=== PATIENT | female | born 1980 | race Caucasian/White ===

== ENCOUNTER 2021-01-05 12:23 | Emergency (ER) | payer OTHER ==
[~2021-01-05] VITALS: Ht 170.2 cm; Wt 124.7 kg
--- NOTE | ~2021-01-05 | EMS ---
[place] [address] EMS Patient Care Report Name: [facility]ITHIN COMER [id number] Admission: 01/05/21 Attend Phys: Discharge: 01/05/21 Date of : 84 Report #: [id number] THIS REPORT FOR: //name// Report Transmitted: 01/05/2021 16:22 EMS Care Summary [facility]ident [id number] @ 01/05/2021 11:25 Incident [address] [place] [address] Patient NITHIN COMER Female, 40 Years 1980 Patient Address [address] [place] [address] Chief Complaint She's been short of air for the last day Disposition Transported Lights/[place] [facility] Reason Breathing Problem Transported To [facility] Narrative Med 1 response requested to [address] [place] [address] for a female with shortness of air and feeling dizzy. Med 1 copied the call and began our emergent response to the scene. We arrived on scene after [facility] without incident. We were met at the ambulance by the FD with a brief report on the situation. We were advised the patient was in severe distress and vitals were not able to be obtained due to distress level. Inside the residence we located a female sitting up right in a recliner type chair. Patient alert with A GCS of 15 however slow to respond. Patient pale and diaphoretic. Family advised that she has not been feeling well for three weeks. She has had heavy vaginal bleeding for three weeks. Unknown if she was [place] [id number] EMS Patient Care Report Name: NITHIN COMER Room: [facility]#: [id number] Admission: 01/05/21 Attend Phys: Discharge: 01/05/21 Date of : 84 Report #: [id number] at any point. Family denied that she takes any medication and has no medical history. She woke up from sleep around 11am and complained of abdominal pain that ran into her chest. She had increased shortness of air after waking up. Family called EMS when the patient began to have fainting episodes. Patients vitals were obtained at her side. We were not able to get an oxygen saturation due to cool finger tips. Lungs were clear upon assessment. She was placed on oxygen via NC which she advised helped. As patient was being moved to the stair chair she became unresponsive. Patient went apneic and had no palpable pulse present. She was moved to the floor and CPR was initiated. She was placed on the ekg monitor in patches mode. She was ventilated with a BVM with high flow oxygen and capnography. IV access was obtained on the left side with fluid running wide open. After the first cycle of CPR was completed we paused for a rhythm check. Patient remained pulseless and was noted to be in PEA. CPR continued. IGEL was placed and confirmed then secured with tube tie. She was given a dose of Epi and Narcan with no changes. We continued rounds of CPR with pauses for rhythm and pulse checks. Patient remained in PEA. We gave doses of Epi IV with no changes. As the code was witnessed by EMS we made the decision to transport to the ER for further treatment and care. Patient rolled on to a backboard where she was secured. She was then taken to the cot where she was again secured. She was taken to the ambulance and placed inside. Treatment continued as we transported emergent to [facility]. Radio report was called in to the ER 20 min prior to arrival. Upon arrival to the ER patient was taken inside and to ER 2 where she was moved to the ER bed. Patients las rhythm with EMS upon arrival was Asystole. Report was given to the DR taking over care. Signatures were obtained by the ER as the patient was not able due to cardiac arrest. Care transferred and Med 1 cleared to return to service. 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 Acute Respiratory Distress (Dyspnea) [facility] [address] [facility] [place] [address] EMS Patient Care Report Name: NITHIN COMER Room: [facility]#: [id number] Admission: 01/05/21 Attend Phys: Discharge: 01/05/21 Date of : 84 Report #: [id number] Procedures @11:40ALS AssessmentResponse: UnchangedSucceeded@11:48Response: UnchangedSucceeded@11:50Lactated Ringers 1000cc (20 ga) Site: Antecubital-LeftResponse: UnchangedSucceeded@12:12Epinephrine 1:10 - 1 Milligrams (mg) - Intravenous (IV)Response: Unchanged@12:07Epinephrine 1:10 - 1 Milligrams (mg) - Intravenous (IV)Response: Unchanged@12:02Epinephrine 1:10 - 1 Milligrams (mg) - Intravenous (IV)Response: Unchanged@11:57Epinephrine 1:10 - 1 Milligrams (mg) - Intravenous (IV)Response: Unchanged@11:52Epinephrine 1:10 - 1 Milligrams (mg) - Intravenous (IV)Response: Unchanged@11:55Narcan - 1 Milligrams (mg) - Intravenous (IV)Response: Unchanged@12:18Epinephrine 1:10 - 1 Milligrams (mg) - Intravenous (IV)Response: Unchanged@11:49iGEL Response: UnchangedSucceeded@11:50Suction Response: UnchangedSucceeded@11:41Oxygen FlowRate: 4 Device: Nasal Cannula (NC) Response: UnchangedSucceeded@11:49Oxygen FlowRate: 15 Device: Bag Valve Mask (BVM) Response: ImprovedSucceeded Timeline 11:24,Call Received 11:25,Dispatched 11:27,En Route 11:37,On Scene 11:38,At Patient 11:40,ALS Assessment,Response: UnchangedSucceeded, 11:40,BP: 90/ M,PULSE: 62,RR: 12 R,SPO2: Ox,ETCO2: ,BG: -2,PAIN: ,GCS: 13, 11:41,Oxygen FlowRate: 4 Device: Nasal Cannula (NC) Response: UnchangedSucceeded, 11:48,Response: UnchangedSucceeded, 11:48,BP: / M,PULSE: 0,RR: 12 R,SPO2: Ox,ETCO2: 22 ,BG: ,PAIN: ,GCS: 11, 11:49,Oxygen FlowRate: 15 Device: Bag Valve Mask (BVM) Response: ImprovedSucceeded, 11:49,iGEL Response: UnchangedSucceeded, 11:50,Lactated Ringers 1000cc 20 ga Site: Antecubital-Left,Response: UnchangedSucceeded, 11:50,Suction Response: UnchangedSucceeded, 11:52,Epinephrine 1:10 - 1 Milligrams (mg) - Intravenous (IV),Response: Unchanged 11:55,Narcan - 1 Milligrams (mg) - Intravenous (IV),Response: Unchanged 11:57,Depart Scene 11:57,Epinephrine 1:10 - 1 Milligrams (mg) - Intravenous (IV),Response: Unchanged 12:00,BP: / M,PULSE: 0,RR: 12 R,SPO2: Ox,ETCO2: 28 ,BG: ,PAIN: ,GCS: 3, 12:02,Epinephrine 1:10 - 1 Milligrams (mg) - Intravenous (IV),Response: Unchanged 12:07,Epinephrine 1:10 - 1 Milligrams (mg) - Intravenous (IV),Response: Unchanged 12:10,BP: / M,PULSE: 0,RR: 12 R,SPO2: Ox,ETCO2: 10 ,BG: ,PAIN: ,GCS: , [address] [address] EMS Patient Care Report Name: NITHIN COMER Room: [facility]#: [id number] Admission: 01/05/21 Attend Phys: Discharge: 01/05/21 Date of : 84 Report #: [id number] 12:12,Epinephrine 1:10 - 1 Milligrams (mg) - Intravenous (IV),Response: Unchanged 12:15,BP: / M,PULSE: ,RR: 12 R,SPO2: Ox,ETCO2: 6 ,BG: ,PAIN: ,GCS: 3, 12:18,Epinephrine 1:10 - 1 Milligrams (mg) - Intravenous (IV),Response: Unchanged 12:20,At Destination 12:20,BP: / M,PULSE: ,RR: 10 R,SPO2: Ox,ETCO2: 12 ,BG: -2,PAIN: ,GCS: 3, 13:30,Call Closed Disclaimer v1.1 Copyright 2020 [employer] This EMS Care Summary contains data elements from the applicable legal record (which may be displayed differently). It is designed to provide pertinent information for the following purposes: continuity of care, clinical quality, and state data reporting. The complete legal record is available to ED staff and administrators of the receiving hospital in [employer]'s Patient Tracker. All data is provided "as is."
[~2021-01-05 12:23] MED LIST: TRAMADOL 50 MG50 MG PO
[2021-01-05 12:44] VITALS: BP 0/0
[2021-01-05] MEDS ORDERED: METFORMIN HCL500 M3 PO (13:06)
== END 2021-01-05 12:38 ==
LOC: M.ERS 12:23
DX: I46.9 Cardiac arrest, cause unspecified (principal); Z20.822 Contact with and (suspected) exposure to COVID-19; N93.8 Other specified abnormal uterine and vaginal bleeding; Z79.899 Other long term (current) drug therapy